=== PATIENT | male | born 1975 | race American Indian/Alaskan Native ===

== ENCOUNTER 2016-05-16 15:34 | Emergency (ER) | payer SELFPAY ==
--- NOTE | 2016-05-16 15:37 | EDM.PDOC ---
ED HPI Trauma - General Chief Complaint: Lower Extremity Injury/Pain Stated Complaint: [id number] LEFT KNEE HYPEREXTENDED IT Time Seen by Provider: 05/16/16 15:36 Source: Reports: Patient, Old records, RN, RN notes reviewed History Limitations: Reports: No limitations - History of Present Illness INITIAL COMMENTS - FREE TEXT/NARRATIVE: Arrives to ER by POV with c/o "hyperextension injury" of the left knee. Injury occurred 2 days ago when patient tripped on steps. He comes to the ER today due to persistent swelling and pain. Denies any other injury. Severity: moderate Pain/Injury Location: Reports: lower extremity, left Consciousness: Reports: no loss of consciousness, remembers incident Associated Symptoms: Reports: no other symptoms Allergies/ADRs: Allergies penicillin Allergy (Verified 05/16/16 15:43) Rash Penicillins Allergy (Verified 05/16/16 15:43) Bronchospasms Past Medical History - Past Health History Medical/Surgical History: Denies Medical/Surgical History HEENT History: Reports: Impaired vision Cardiovascular History: Reports: None Respiratory History: Reports: Asthma Gastrointestinal History: Reports: None Genitourinary History: Reports: None Musculoskeletal History: Reports: None Neurological History: Reports: None Psychiatric History: Reports: Addiction, Anxiety, Depression, Hallucinations Endocrine/Metabolic History: Reports: None Hematologic History: Reports: None Immunologic History: Reports: None Oncologic (Cancer) History: Reports: None Dermatologic History: Reports: None - Infectious Disease History Infectious Disease History: Reports: None - Past Surgical History Head Surgeries/Procedures: Reports: None Social & Family History - Family History Family Medical History: Noncontributory - Tobacco Use Smoking Status *Q: Never Smoker Years of Tobacco use: 3 Used Tobacco, but Quit: No Second Hand Smoke Exposure: Yes - Caffeine Use Caffeine Use: Reports: Soda - Alcohol Use Days Per Week of Alcohol Use: 7 Number of Drinks Per Day: 0 Total Drinks Per Week: 0 - Recreational Drug Use Recreational Drug Use: No - Living Situation & Occupation Living situation: Reports: , with significant other Occupation: unemployed Review of Systems - Review of Systems Review Of Systems: ROS reveals no pertinent complaints other than HPI. Trauma Exam - Physical Exam Exam: See Below Exam Limited By: No limitations General Appearance: Reports: alert, WD/WN, no apparent distress Head: Reports: atraumatic, normocephalic Respiratory Exam: Reports: no respiratory distress Cardiovascular: Reports: normal peripheral pulses Extremities: Reports: joint effusion (left knee.), pain with movement (left knee ), unable to bear weight (left knee). Denies: bony-point tenderness Neurologic: Reports: pin inserter regulator II-XII nml as tested, no motor/sensory deficits, alert , normal mood/affect, oriented x 3 Skin: Reports: Normal color, Warm/dry Course - Vital Signs Last Recorded V/S: Last Vital Signs Temp 36.8 C 05/16/16 15:51 Pulse 92 05/16/16 15:51 Resp 18 05/16/16 15:51 BP 128/86 05/16/16 15:51 Pulse Ox 96 05/16/16 15:51 - Orders/Labs/Meds Orders: Active Orders 24 hr Category Date Time Status Immobilizer [RC] ASDIRECTED Care 05/16/16 16:11 Ordered DME for Discharge [COMM] Routine Oth 05/16/16 16:10 Ordered Meds: Medications Discontinued Medications Generic Name Dose Route Start Last Admin Trade Name Bryant PRN Reason Stop Dose Admin Ibuprofen 800 mg 05/16/16 16:11 05/16/16 16:23 Motrin PO 05/16/16 16:12 800 mg ONETIME ONE Administration Tramadol HCl 50 mg 05/16/16 16:11 05/16/16 16:23 Ultram PO 05/16/16 16:12 50 mg ONETIME ONE Administration - Radiology Interpretation Free Text/Narrative:: X-ray of left knee: Joint effusion. No fractures, per rad report. Departure - Departure Time of Disposition: 16:12 Disposition: Home, Self-Care 01 Condition: good Clinical Impression: Knee effusion, left Hyperextension injury of knee Qualifiers: Encounter type: initial encounter Laterality: left Qualified Code(s): S89.82XA - Other specified injuries of left lower leg, initial encounter Instructions: Knee Sprain, [id number]-[id number], Knee Effusion, [id number] Forms: ED Department Discharge Additional Instructions: Rest, ice pack, and elevate left knee for pain and swelling. Use crutches and knee immobilizer for 7 to 10 days. Rx: Motrin 600mg Rx: Tramadol 50mg Follow up in clinic in 7 to 10 days for recheck and referral to orthopedic surgeon if needed. - My Orders Last 24 Hours: My Active Orders 05/16/16 16:10 DME for Discharge [COMM] Routine 05/16/16 16:11 Immobilizer [RC] ASDIRECTED - Assessment/Plan Last 24 Hours: My Active Orders 05/16/16 16:10 DME for Discharge [COMM] Routine 05/16/16 16:11 Immobilizer [RC] ASDIRECTED
[2016-05-16 15:52] VITALS: BP 128/86
--- NOTE | 2016-05-16 16:05 | CR ---
Clinical history: 40-year-old male hyperextension injury left knee (fall). Interpretation: Abnormal. Suprapatellar bursal effusion but no sign of left knee fracture, dislocation or radiopaque loose kaley nt body (fabella posterior laterally). Reactive sclerosis and tiny marginal spur formation patellofemoral surface of the patella. No other arthritic or degenerative changes. CONCLUSION: Joint effusion. Chondromalacia patella. No acute fracture.
[2016-05-16] MEDS ORDERED: traMADol 50 MG Tab PO ONE (16:11)
[2016-05-16] MEDS ORDERED: Ibuprofen 800 MG Tab PO ONE (16:11)
== END 2016-05-16 16:25 | disposition home or self-care (01) ==
LOC: DL.ED 15:34
DX: S89.92XA Unspecified injury of left lower leg, initial encounter (principal); M25.462 Effusion, left knee; J45.909 Unspecified asthma, uncomplicated; F41.9 Anxiety disorder, unspecified; F32.9 Major depressive disorder, single episode, unspecified; Z88.0 Allergy status to penicillin; W10.9XXA Fall (on) (from) unspecified stairs and steps, initial encounter
CPT/HCPCS: 73562; 99283; A9270

== ENCOUNTER 2019-10-20 15:25 | Emergency (ER) | payer MEDICAID ==
[2019-10-20] MEDS ORDERED: Sodium Chloride 0.9% 10 ML Syringe FLUSH PRN (15:33)
--- NOTE | 2019-10-20 15:33 | EDM.PDOC ---
ED HPI GENERAL MEDICAL PROBLEM - General Chief Complaint: Abdominal Pain Stated Complaint: SPIRIT AMB. Time Seen by Provider: 10/20/19 15:32 Source of Information: Reports: Patient, Old Records, RN, RN Notes Reviewed History Limitations: Reports: No Limitations - History of Present Illness INITIAL COMMENTS - FREE TEXT/NARRATIVE: Patient arrives to ED by [facility] with complaint of abdominal pain, ascites, and shortness of breath off and on since August. Pt has Hx of cirrhosis with ascites. He had paracentesis at [facility] about 2 weeks ago. Pt states that for the last week his abdomen has increased in size and he has become more yellow. Denies fever or chills. He states he was admitted to the hospital in August with COVID but recovered and was "cleared". Onset: Gradual Duration: Getting Worse Location: Reports: Chest, Abdomen Quality: Reports: Ache Severity: Moderate Improves with: Reports: None Worsens with: Reports: None Associated Symptoms: Reports: No Other Symptoms Abdominal Pain Score (Numeric/FACES): 8 - Related Data Allergies Allergy/AdvReac Type Severity Reaction Status Date / Time Penicillins Allergy Bronchospas Verified 10/20/19 15:32 ms Home Meds: Home Meds Citric Acid/Sodium Citrate [Bicitra Solution] 20 ml PO BID 10/20/19 [History] Folic Acid 1 mg PO DAILY 10/20/19 [History] Furosemide [Lasix] 20 mg PO DAILY 10/20/19 [History] Lactulose 15 ml PO QID 10/20/19 [History] Magnesium Oxide 400 mg PO BID 10/20/19 [History] Omeprazole 40 mg PO DAILY 10/20/19 [History] Rifaximin [Xifaxan] 400 mg PO TID 10/20/19 [History] Spironolactone [Aldactone] 100 mg PO DAILY 10/20/19 [History] Past Medical History - Past Health History Medical/Surgical History: Denies Medical/Surgical History HEENT History: Reports: Impaired Vision Cardiovascular History: Reports: None Respiratory History: Reports: Asthma Gastrointestinal History: Reports: Cirrhosis, Hepatitis (Alcoholic), Jaundice Genitourinary History: Reports: None Musculoskeletal History: Reports: None Neurological History: Reports: None Psychiatric History: Reports: Addiction, Anxiety, Depression, Hallucinations Endocrine/Metabolic History: Reports: None Hematologic History: Reports: None Immunologic History: Reports: None Oncologic (Cancer) History: Reports: None Dermatologic History: Reports: None - Infectious Disease History Infectious Disease History: Reports: None - Past Surgical History Head Surgeries/Procedures: Reports: None Social & Family History - Family History Family Medical History: Noncontributory - Caffeine Use Caffeine Use: Reports: None - Alcohol Use Alcohol Use History: Yes Alcohol Use Frequency: Not Used in Over 1 Year - Living Situation & Occupation Living situation: Reports: , with Significant Other Occupation: Unemployed ED ROS GENERAL - Review of Systems Review Of Systems: Comprehensive ROS is negative, except as noted in HPI. ED EXAM, GENERAL - Physical Exam Exam: See Below Exam Limited By: No Limitations General Appearance: Alert, No Apparent Distress, Other (Chronically ill appearing) Eye Exam: Bilateral Eye: EOMI (Scleral icterus) Ears: Normal External Exam, Hearing Grossly Normal Nose: Normal Inspection, Normal Mucosa, No Blood Throat/Mouth: Normal Lips, Normal Oropharynx, Normal Voice, No Airway Compromise Head: Atraumatic, Normocephalic Neck: Normal Inspection, Supple, Non-Tender, Full Range of Motion. No: Lymphadenopathy (L), Lymphadenopathy (R) Respiratory/Chest: No Respiratory Distress, Lungs Clear, Normal Breath Sounds, No Accessory Muscle Use, Chest Non-Tender Cardiovascular: Normal Peripheral Pulses, Regular Rate, Rhythm GI/Abdominal: Normal Bowel Sounds, Soft, Tender (Generalized, with fluid wave consistent with ascites), Hepatomegaly. No: Guarding, Rigid, Rebound (Male) Exam: Deferred Rectal (Males) Exam: Deferred Back Exam: Normal Inspection Extremities: Normal Range of Motion, Non-Tender Neurological: Alert, Oriented, Normal Cognition, No Motor/Sensory Deficits Psychiatric: Normal Mood Skin Exam: Warm, Dry, Intact, Jaundice. No: Ecchymosis, Petechiae Course - Vital Signs Last Recorded V/S: Last Vital Signs Temp 97.7 F 10/20/19 15:33 Pulse 100 10/20/19 15:33 Resp 18 10/20/19 15:33 BP 140/72 10/20/19 15:33 Pulse Ox 97 10/20/19 15:33 - Orders/Labs/Meds Orders: Active Orders 24 hr Category Date Time Status Peripheral IV Care [RC] . DIRECTED Care 10/20/19 15:34 Active UA RFX ALISON AND CULT IF INDIC [URIN] Stat Lab 10/20/19 16:29 Received Ciprofloxacin in D5W [Cipro in D5W 400 MG/200 ML] 400 Med 10/20/19 17:01 Active mg Premix Bag 1 bag IV ONETIME Sodium Chloride 0.9% [Saline Flush] Med 10/20/19 15:33 Active 10 ml FLUSH ASDIRECTED PRN Peripheral IV Insertion Adult [OM.PC] Stat Oth 10/20/19 15:33 Ordered Medication Orders Ciprofloxacin/Dextrose 400 mg/ (Premix) 200 mls @ 200 mls/hr IV ONETIME ONE Stop: 10/20/19 18:00 Last Admin: 10/20/19 17:12 Dose: 200 mls/hr Documented by: VALDEMAR Sodium Chloride (Saline Flush) 10 ml FLUSH ASDIRECTED PRN PRN Reason: Keep Vein Open Last Admin: 10/20/19 15:48 Dose: 10 ml Documented by: VALDEMAR Labs: Laboratory Tests 10/20/19 10/20/19 10/20/19 Range/Units 15:49 15:49 15:49 WBC 13.7 H (5.0-10.0) 10^3/uL RBC 2.81 L (4.6-6.2) 10^6/uL Hgb 9.6 L D (14.0-18.0) g/dL Hct 27.1 L (40.0-54.0) % MCV 96.4 (80-100) fL MCH 34.2 H (27.0-34.0) pg MCHC 35.4 H (33.0-35.0) g/dL Plt Count 83 L (150-450) 10^3/uL Neut % (Auto) 78.0 H (42.2-75.2) % Lymph % (Auto) 7.6 L (20.5-50.1) % [place] % (Auto) 13.1 H (2-8) % Eos % (Auto) 0.9 L (1.0-3.0) % Baso % (Auto) 0.4 (0.0-1.0) % PT 17.2 H D (9.0-12.0) SEC INR 1.8 H (0.9-1.2) APTT 39.0 H (22.0-34.0) SEC Sodium 130 L (136-145) mmol/L Potassium 3.8 (3.5-5.1) mmol/L Chloride 100 (98-107) mmol/L Carbon Dioxide 19 L (21-32) mmol/L Anion Gap 14.8 H (7-13) mEq/L BUN 12 (7-18) mg/dL Creatinine 1.26 (0.70-1.30) mg/dL Est Cr Clr Drug Dosing 81.26 mL/min Estimated GFR (MDRD) > 60 BUN/Creatinine Ratio 9.5 (No establ ref range) Glucose 119 H (74-99) mg/dL Lactic Acid (0.4-2.0) mmol/L Calcium 8.0 L (8.5-10.1) mg/dL Total Bilirubin 22.7 H (0.2-1.0) mg/dL AST 65 H (15-37) U/L ALT 35 (16-63) U/L Alkaline Phosphatase 240 H (46-116) U/L Ammonia (11-32) umol/L Total Protein 6.5 (6.4-8.2) g/dL Albumin 2.1 L (3.4-5.0) g/dL Globulin 4.4 Albumin/Globulin Ratio 0.48 Amylase 74 (25-115) U/L Lipase 317 (73-393) U/L Urine Opiates Screen (NEGATIVE) Ur Oxycodone Screen (NEGATIVE) Urine Methadone Screen (NEGATIVE) Ur Barbiturates Screen (NEGATIVE) U Tricyclic Antidepress (NEGATIVE) Ur Phencyclidine Scrn (NEGATIVE) Ur Amphetamine Screen (NEGATIVE) U Methamphetamines Scrn (NEGATIVE) Urine MDMA Screen (NEGATIVE) U Benzodiazepines Scrn (NEGATIVE) Urine Cocaine Screen (NEGATIVE) U Marijuana (THC) Screen (NEGATIVE) Ethyl Alcohol < 3 (0) mg/dL 10/20/19 10/20/19 10/20/19 Range/Units 15:49 15:49 16:29 WBC (5.0-10.0) 10^3/uL RBC (4.6-6.2) 10^6/uL Hgb (14.0-18.0) g/dL Hct (40.0-54.0) % MCV (80-100) fL MCH (27.0-34.0) pg MCHC (33.0-35.0) g/dL Plt Count (150-450) 10^3/uL Neut % (Auto) (42.2-75.2) % Lymph % (Auto) (20.5-50.1) % [place] % (Auto) (2-8) % Eos % (Auto) (1.0-3.0) % Baso % (Auto) (0.0-1.0) % PT (9.0-12.0) SEC INR (0.9-1.2) APTT (22.0-34.0) SEC Sodium (136-145) mmol/L Potassium (3.5-5.1) mmol/L Chloride (98-107) mmol/L Carbon Dioxide (21-32) mmol/L Anion Gap (7-13) mEq/L BUN (7-18) mg/dL Creatinine (0.70-1.30) mg/dL Est Cr Clr Drug Dosing mL/min Estimated GFR (MDRD) BUN/Creatinine Ratio (No establ ref range) Glucose (74-99) mg/dL Lactic Acid 1.8 (0.4-2.0) mmol/L Calcium (8.5-10.1) mg/dL Total Bilirubin (0.2-1.0) mg/dL AST (15-37) U/L ALT (16-63) U/L Alkaline Phosphatase (46-116) U/L Ammonia 38 H (11-32) umol/L Total Protein (6.4-8.2) g/dL Albumin (3.4-5.0) g/dL Globulin Albumin/Globulin Ratio Amylase (25-115) U/L Lipase (73-393) U/L Urine Opiates Screen Negative (NEGATIVE) Ur Oxycodone Screen Negative (NEGATIVE) Urine Methadone Screen Negative (NEGATIVE) Ur Barbiturates Screen Negative (NEGATIVE) U Tricyclic Antidepress Negative (NEGATIVE) Ur Phencyclidine Scrn Negative (NEGATIVE) Ur Amphetamine Screen Negative (NEGATIVE) U Methamphetamines Scrn Negative (NEGATIVE) Urine MDMA Screen Negative (NEGATIVE) U Benzodiazepines Scrn Negative (NEGATIVE) Urine Cocaine Screen Negative (NEGATIVE) U Marijuana (THC) Screen Negative (NEGATIVE) Ethyl Alcohol (0) mg/dL Meds: Medications Generic Name Dose Route Start Last Admin Trade Name Freq PRN Reason Stop Dose Admin Ciprofloxacin/Dextrose 400 mg/ 200 mls @ 200 mls/hr 10/20/19 17:01 10/20/19 17:12 Premix IV 10/20/19 18:00 200 mls/hr ONETIME ONE Administration Sodium Chloride 10 ml 10/20/19 15:33 10/20/19 15:48 Saline Flush FLUSH 10 ml ASDIRECTED PRN Administration Keep Vein Open - Re-Assessments/Exams Free Text/Narrative Re-Assessment/Exam: 10/20/19 17:22 Jeremy Rowe has been providing pt's care recently, but has no beds available. Pt agrees to go to [facility]. Departure - Departure Time of Disposition: 17:23 Disposition: DC/Tfer to [facility] 02 Condition: Serious Clinical Impression: Hyperbilirubinemia Cirrhosis of liver with ascites Qualifiers: Hepatic cirrhosis type: alcoholic cirrhosis Qualified Code(s): K70.31 - Alcoholic cirrhosis of liver with ascites Abdominal pain Qualifiers: Abdominal location: generalized Qualified Code(s): R10.84 - Generalized abdominal pain - Discharge Information *PRESCRIPTION DRUG MONITORING PROGRAM REVIEWED*: Not Applicable *COPY OF PRESCRIPTION DRUG MONITORING REPORT IN PATIENT ZACARIAS: Not Applicable Forms: ED Department Discharge, Interfacility Transfer [facility] Sepsis Event Note (ED) - Focused Exam Vital Signs: Vital Signs Temp Pulse Resp BP Pulse Ox 10/20/19 15:33 97.7 F 100 18 140/72 97 - My Orders Last 24 Hours: My Active Orders 10/20/19 15:33 Sodium Chloride 0.9% [Saline Flush] 10 ml FLUSH ASDIRECTED PRN Peripheral IV Insertion Adult [OM.PC] Stat 10/20/19 15:34 Peripheral IV Care [RC] . DIRECTED 10/20/19 16:29 UA RFX ALISON AND CULT IF INDIC [URIN] Stat 10/20/19 17:01 Ciprofloxacin in D5W [Cipro in D5W 400 MG/200 ML] 400 mg Premix Bag 1 bag IV ONETIME - Assessment/Plan Last 24 Hours: My Active Orders 10/20/19 15:33 Sodium Chloride 0.9% [Saline Flush] 10 ml FLUSH ASDIRECTED PRN Peripheral IV Insertion Adult [OM.PC] Stat 10/20/19 15:34 Peripheral IV Care [RC] . DIRECTED 10/20/19 16:29 UA RFX ALISON AND CULT IF INDIC [URIN] Stat 10/20/19 17:01 Ciprofloxacin in D5W [Cipro in D5W 400 MG/200 ML] 400 mg Premix Bag 1 bag IV ONETIME
[2019-10-20 15:36] VITALS: BP 140/72; PULSE 100
[2019-10-20 16:35] LABS: ANION GAP 14.8 mEq/L (7-13); CHLORIDE,CL 100 mmol/L (98-107); SODIUM,NA 130 mmol/L (136-145)
[2019-10-20] MEDS ORDERED: Ciprofloxacin in D5W 400 MG in Premix Bag 1 BAG IV ONE ×2 (17:01)
== END 2019-10-20 19:24 ==
LOC: DL.ED 15:25
DX: E80.6 Other disorders of bilirubin metabolism (principal); K70.31 Alcoholic cirrhosis of liver with ascites; J45.909 Unspecified asthma, uncomplicated; Z88.0 Allergy status to penicillin; Z79.899 Other long term (current) drug therapy
CPT/HCPCS: 36415; 80053; 80305; 80307; 81001; 82140; 82150; 83605; 83690; 85025; 85610; 85730; 96365; 99285; J0744

== ENCOUNTER 2019-11-21 14:40 | Emergency (ER) | payer MEDICAID ==
[2019-11-21 14:27] VITALS: BP 133/70; PULSE 129
--- NOTE | 2019-11-21 14:58 | EDM.PDOC ---
ED HPI GENERAL MEDICAL PROBLEM - General Chief Complaint: Abdominal Pain Stated Complaint: AMBULANCE Time Seen by Provider: 11/21/19 14:30 Source of Information: Reports: Patient, RN, RN Notes Reviewed History Limitations: Reports: No Limitations - History of Present Illness INITIAL COMMENTS - FREE TEXT/NARRATIVE: Patient presents to the ED via EMS for complaints of abdominal pain, diarrhea, and shortness of breath. The patient states his abdominal pain and diarrhea began last night. He states his shortness of breath is chronic, but has progressively worsened over the last week. He notes his last paracentesis was performed about two weeks ago. He verbalizes complaints of diffuse lower abdominal pain which is burning and sharp in nature. He denies any recent alcohol use and states his last drink was in August. He denies chest pain, chest pressure, fever, or shaking chills. The patient does attest to palpitations and bounding heart. He states he has noticed recent hematuria, but denies dysuria or suprapubic tenderness. He denies melena or dark, tarry stools. He denies taking any medications for his current pain, shortness of breath, hematuria, or palpitations. Abdomen Pain Score (Numeric/FACES): 7 - Related Data Allergies Allergy/AdvReac Type Severity Reaction Status Date / Time Penicillins Allergy Bronchospas Verified 11/21/19 14:27 ms Home Meds: Home Meds Citric Acid/Sodium Citrate [Bicitra Solution] 20 ml PO BID 10/20/19 [History] Folic Acid 1 mg PO DAILY 10/20/19 [History] Furosemide [Lasix] 20 mg PO DAILY 10/20/19 [History] Lactulose 15 ml PO QID 10/20/19 [History] Magnesium Oxide 400 mg PO BID 10/20/19 [History] Omeprazole 40 mg PO DAILY 10/20/19 [History] Rifaximin [Xifaxan] 400 mg PO TID 10/20/19 [History] Spironolactone [Aldactone] 100 mg PO DAILY 10/20/19 [History] Past Medical History - Past Health History Medical/Surgical History: Denies Medical/Surgical History HEENT History: Reports: Impaired Vision Cardiovascular History: Reports: None Respiratory History: Reports: Asthma Gastrointestinal History: Reports: Cirrhosis, Hepatitis, Jaundice Other Gastrointestinal History: ascites Genitourinary History: Reports: None Musculoskeletal History: Reports: None Neurological History: Reports: None Psychiatric History: Reports: Addiction, Anxiety, Depression, Hallucinations Endocrine/Metabolic History: Reports: None Hematologic History: Reports: None Immunologic History: Reports: None Oncologic (Cancer) History: Reports: None Dermatologic History: Reports: None - Infectious Disease History Infectious Disease History: Reports: None - Past Surgical History Head Surgeries/Procedures: Reports: None Social & Family History - Family History Family Medical History: Noncontributory - Tobacco Use Smoking Status *Q: Never Smoker - Caffeine Use Caffeine Use: Reports: Tea - Alcohol Use Date of Last Drink: 11/11/19 - Recreational Drug Use Recreational Drug Use: No - Living Situation & Occupation Living situation: Reports: , with Significant Other Occupation: Unemployed ED ROS GENERAL - Review of Systems Review Of Systems: Comprehensive ROS is negative, except as noted in HPI. ED EXAM, GI/ABD - Physical Exam Exam: See Below Exam Limited By: No Limitations General Appearance: Alert, Moderate Distress Eyes: Bilateral: Normal Appearance (Jaundiced), EOMI Throat/Mouth: Normal Voice, No Airway Compromise Head: Normocephalic Neck: Normal Inspection, Supple, Non-Tender Respiratory/Chest: Respiratory Distress, Crackles, Accessory Muscle Use Cardiovascular: No Gallop, No JVD, No Murmur, No Rub, Tachycardia GI/Abdominal Exam: Distended, Tender, Hepatomegaly, Other (Gross ascites) (Male) Exam: Deferred Rectal (Males) Exam: Deferred Back Exam: Normal Inspection. No: CVA Tenderness (L), CVA Tenderness (R) Neurological: Alert, CN II-XII Intact, Normal Cognition Skin Exam: Jaundice Course - Vital Signs Last Recorded V/S: Last Vital Signs Temp 99.6 F 11/21/19 14:21 Pulse 129 H 11/21/19 14:21 Resp 21 H 11/21/19 14:21 BP 133/70 11/21/19 14:21 Pulse Ox 92 L 11/21/19 14:21 - Orders/Labs/Meds Orders: Active Orders 24 hr Category Date Time Status EKG Documentation Completion [RC] STAT Care 11/21/19 14:20 Active Insert Drake Catheter [Insert Urinary Catheter] [OM.PC] Care 11/21/19 16:30 Ordered Q24H Urinary Catheter Assessment [RC] ASDIRECTED Care 11/21/19 16:28 Active Chest 2V [CR] Urgent Exams 11/21/19 14:22 Stop Req CULTURE BLOOD [BC] Stat Lab 11/21/19 14:44 Results CULTURE BLOOD [BC] Stat Lab 11/21/19 14:50 Received Blood Culture x2 Reflex Set [OM.PC] Stat Oth 11/21/19 14:38 Ordered Labs: Laboratory Tests 11/21/19 11/21/19 11/21/19 Range/Units 14:44 14:44 14:50 WBC 7.7 (5.0-10.0) 10^3/uL RBC 2.09 L (4.6-6.2) 10^6/uL Hgb 7.5 L D (14.0-18.0) g/dL Hct 21.4 L (40.0-54.0) % MCV 102.4 H D (80-100) fL MCH 35.9 H (27.0-34.0) pg MCHC 35.0 (33.0-35.0) g/dL Plt Count 84 L (150-450) 10^3/uL Neut % (Auto) 93.5 H (42.2-75.2) % Lymph % (Auto) 2.5 L (20.5-50.1) % [place] % (Auto) 3.8 (2-8) % Eos % (Auto) 0.1 L (1.0-3.0) % Baso % (Auto) 0.1 (0.0-1.0) % PT 17.5 H (9.0-12.0) SEC INR 1.9 H (0.9-1.2) APTT 32.0 (22.0-34.0) SEC ABG pH (7.35-7.45) ABG pCO2 (35-45) mmHg ABG pO2 (70-100) mmHg ABG HCO3 (22-26) mmol/L ABG O2 Saturation (95-100) % ABG Base Excess ((-2)-(+3)) mmol/L Turner Test O2 Delivery Device Sodium (136-145) mmol/L Potassium (3.5-5.1) mmol/L Chloride (98-107) mmol/L Carbon Dioxide (21-32) mmol/L Anion Gap (7-13) mEq/L BUN (7-18) mg/dL Creatinine (0.70-1.30) mg/dL Est Cr Clr Drug Dosing mL/min Estimated GFR (MDRD) BUN/Creatinine Ratio (No establ ref range) Glucose (74-99) mg/dL Lactic Acid (0.4-2.0) mmol/L Calcium (8.5-10.1) mg/dL Total Bilirubin (0.2-1.0) mg/dL AST (15-37) U/L ALT (16-63) U/L Alkaline Phosphatase (46-116) U/L Ammonia 27 (11-32) umol/L Troponin I (0.000-0.056) ng/mL Total Protein (6.4-8.2) g/dL Albumin (3.4-5.0) g/dL Globulin Albumin/Globulin Ratio Amylase (25-115) U/L Lipase (73-393) U/L Urine Color (YELLOW) Urine Appearance (CLEAR) Urine pH (5.0-9.0) Ur Specific [place] (1.005-1.030) Urine Protein (NEGATIVE) Urine Glucose (UA) (NEGATIVE) Urine Ketones (NEGATIVE) Urine Occult Blood (NEGATIVE) Urine Nitrite (NEGATIVE) Urine Bilirubin (NEGATIVE) Urine Urobilinogen (0.2-1.0) mg/dL Ur Leukocyte Esterase (NEGATIVE) Urine RBC /HPF Urine WBC (0-5/HPF) /HPF Ur Epithelial Cells (NOT SEEN) /HPF Amorphous Sediment (NOT SEEN) /HPF Urine Bacteria (0-FEW/HPF) /HPF Fine Granular Casts (NOT SEEN) /LPF Urine Mucus (NOT SEEN) /LPF Ethyl Alcohol (0) mg/dL SARS CoV-2 RNA Rapid BILL (NEGATIVE) 11/21/19 11/21/19 11/21/19 Range/Units 14:50 14:50 14:52 WBC (5.0-10.0) 10^3/uL RBC (4.6-6.2) 10^6/uL Hgb (14.0-18.0) g/dL Hct (40.0-54.0) % MCV (80-100) fL MCH (27.0-34.0) pg MCHC (33.0-35.0) g/dL Plt Count (150-450) 10^3/uL Neut % (Auto) (42.2-75.2) % Lymph % (Auto) (20.5-50.1) % [place] % (Auto) (2-8) % Eos % (Auto) (1.0-3.0) % Baso % (Auto) (0.0-1.0) % PT (9.0-12.0) SEC INR (0.9-1.2) APTT (22.0-34.0) SEC ABG pH 7.38 (7.35-7.45) ABG pCO2 27 L (35-45) mmHg ABG pO2 94 (70-100) mmHg ABG HCO3 15.8 L (22-26) mmol/L ABG O2 Saturation 97 (95-100) % ABG Base Excess -8 L ((-2)-(+3)) mmol/L Turner Test Performed O2 Delivery Device Hi flow nasal cannu Sodium 137 (136-145) mmol/L Potassium 3.1 L (3.5-5.1) mmol/L Chloride 103 (98-107) mmol/L Carbon Dioxide 17 L (21-32) mmol/L Anion Gap 20.1 H (7-13) mEq/L BUN 13 (7-18) mg/dL Creatinine 1.13 (0.70-1.30) mg/dL Est Cr Clr Drug Dosing 79.87 mL/min Estimated GFR (MDRD) > 60 BUN/Creatinine Ratio 11.5 (No establ ref range) Glucose 95 (74-99) mg/dL Lactic Acid 4.9 H* (0.4-2.0) mmol/L Calcium 7.8 L (8.5-10.1) mg/dL Total Bilirubin 13.5 H (0.2-1.0) mg/dL AST 185 H (15-37) U/L ALT 73 H (16-63) U/L Alkaline Phosphatase 279 H (46-116) U/L Ammonia (11-32) umol/L Troponin I 0.070 H* (0.000-0.056) ng/mL Total Protein 6.2 L (6.4-8.2) g/dL Albumin 1.9 L (3.4-5.0) g/dL Globulin 4.3 Albumin/Globulin Ratio 0.44 Amylase 50 (25-115) U/L Lipase 443 H (73-393) U/L Urine Color (YELLOW) Urine Appearance (CLEAR) Urine pH (5.0-9.0) Ur Specific [place] (1.005-1.030) Urine Protein (NEGATIVE) Urine Glucose (UA) (NEGATIVE) Urine Ketones (NEGATIVE) Urine Occult Blood (NEGATIVE) Urine Nitrite (NEGATIVE) Urine Bilirubin (NEGATIVE) Urine Urobilinogen (0.2-1.0) mg/dL Ur Leukocyte Esterase (NEGATIVE) Urine RBC /HPF Urine WBC (0-5/HPF) /HPF Ur Epithelial Cells (NOT SEEN) /HPF Amorphous Sediment (NOT SEEN) /HPF Urine Bacteria (0-FEW/HPF) /HPF Fine Granular Casts (NOT SEEN) /LPF Urine Mucus (NOT SEEN) /LPF Ethyl Alcohol 175 (0) mg/dL SARS CoV-2 RNA Rapid BILL (NEGATIVE) 11/21/19 11/21/19 Range/Units 15:00 15:58 WBC (5.0-10.0) 10^3/uL RBC (4.6-6.2) 10^6/uL Hgb (14.0-18.0) g/dL Hct (40.0-54.0) % MCV (80-100) fL MCH (27.0-34.0) pg MCHC (33.0-35.0) g/dL Plt Count (150-450) 10^3/uL Neut % (Auto) (42.2-75.2) % Lymph % (Auto) (20.5-50.1) % [place] % (Auto) (2-8) % Eos % (Auto) (1.0-3.0) % Baso % (Auto) (0.0-1.0) % PT (9.0-12.0) SEC INR (0.9-1.2) APTT (22.0-34.0) SEC ABG pH (7.35-7.45) ABG pCO2 (35-45) mmHg ABG pO2 (70-100) mmHg ABG HCO3 (22-26) mmol/L ABG O2 Saturation (95-100) % ABG Base Excess ((-2)-(+3)) mmol/L Turner Test O2 Delivery Device Sodium (136-145) mmol/L Potassium (3.5-5.1) mmol/L Chloride (98-107) mmol/L Carbon Dioxide (21-32) mmol/L Anion Gap (7-13) mEq/L BUN (7-18) mg/dL Creatinine (0.70-1.30) mg/dL Est Cr Clr Drug Dosing mL/min Estimated GFR (MDRD) BUN/Creatinine Ratio (No establ ref range) Glucose (74-99) mg/dL Lactic Acid (0.4-2.0) mmol/L Calcium (8.5-10.1) mg/dL Total Bilirubin (0.2-1.0) mg/dL AST (15-37) U/L ALT (16-63) U/L Alkaline Phosphatase (46-116) U/L Ammonia (11-32) umol/L Troponin I (0.000-0.056) ng/mL Total Protein (6.4-8.2) g/dL Albumin (3.4-5.0) g/dL Globulin Albumin/Globulin Ratio Amylase (25-115) U/L Lipase (73-393) U/L Urine Color Ava (YELLOW) Urine Appearance Slightly cloudy (CLEAR) Urine pH 6.0 (5.0-9.0) Ur Specific [place] 1.025 (1.005-1.030) Urine Protein 30 H (NEGATIVE) Urine Glucose (UA) 100 H (NEGATIVE) Urine Ketones Trace H (NEGATIVE) Urine Occult Blood Trace-intact H (NEGATIVE) Urine Nitrite Negative (NEGATIVE) Urine Bilirubin Large H (NEGATIVE) Urine Urobilinogen 2.0 H (0.2-1.0) mg/dL Ur Leukocyte Esterase Negative (NEGATIVE) Urine RBC 0-5 /HPF Urine WBC 0-5 (0-5/HPF) /HPF Ur Epithelial Cells Occasional (NOT SEEN) /HPF Amorphous Sediment Few (NOT SEEN) /HPF Urine Bacteria Rare (0-FEW/HPF) /HPF Fine Granular Casts Few H (NOT SEEN) /LPF Urine Mucus Few H (NOT SEEN) /LPF Ethyl Alcohol (0) mg/dL SARS CoV-2 RNA Rapid BILL Positive H (NEGATIVE) Meds: Medications Discontinued Medications Generic Name Dose Route Start Last Admin Trade Name Freq PRN Reason Stop Dose Admin Ciprofloxacin/Dextrose 400 mg/ 200 mls @ 200 mls/hr 11/21/19 15:43 11/21/19 16:11 Premix IV 11/21/19 16:42 200 mls/hr ONETIME ONE Administration - Radiology Interpretation Free Text/Narrative:: [facility] [place] [facility] Final Radiology Report Call: [phone] assistance Online chat: [email or web address] Name: JUAN NG Age: 44Years M Date: 11/21/2019 SSN: -- : [id number] Study: CR CHEST 1V FRONTAL Requesting Physician: Lola Abebe Images: 1 Addl Studies: Provided Clinical History: Shortness of breath; HiFlo Nasal Canula Contrast: Contrast Medium: Contrast Amount: Contrast Method: CONFIDENTIALITY STATEMENT This report is intended only for use by the referring physician, and only in accordance with law. If you received this in error, call [phone]. Page 1 of 1 PROCEDURE INFORMATION: Exam: XR Chest, 1 View Exam date and time: 11/21/2019 2:23 PM Age: 44 years old Clinical indication: Other: Recent pneumonia, patient poor historian; Additional info: Shortness of breath; Hiflo nasal canula TECHNIQUE: Imaging protocol: XR of the chest Views: 1 view. COMPARISON: No relevant prior studies available. FINDINGS: Lungs: Associated dense opacification projects over the mid and left lower lung which may represent underlying atelectasis and or infiltrate although can not exclude an underlying mass on this single view. Minimal right medial basilar atelectasis Pleural space: Large left pleural effusion likely involving approximately 75% of the pleural space. Heart/Mediastinum: Heart size is obscured. Bones/joints: Unremarkable. IMPRESSION: Very large left pleural effusion with associated dense opacification throughout the mid and lower left hemithorax as above. Thank you for allowing us to participate in the care of your patient. Dictated and Authenticated by: Curtis Ortega MD 11/21/2019 3:34 PM Central Time ([place] & [place]) - Re-Assessments/Exams Free Text/Narrative Re-Assessment/Exam: 11/21/19 14:20 Patient changed to HiFlo NC; Pending ABG 11/21/19 15:50 Chest xray revealed large left pleural effusion. Lactic Acid 4.9 Total Bilirubin 13.5 Troponin 0.07 Hgb 7.5 Plt 82 11/21/19 15:00 Attempts to transfer patient to higher level of care initiated 11/21/19 16:10 Dr. Dao at [facility] in [place] to accept patient. [facility] and [facility] in [place] unable to accept patient. Departure - Departure Time of Disposition: 17:20 Disposition: DC/Tfer to Other 70 Condition: Good Clinical Impression: Pleural effusion Cirrhosis of liver Qualifiers: Hepatic cirrhosis type: unspecified hepatic cirrhosis Ascites presence: with ascites Qualified Code(s): K74.60 - Unspecified cirrhosis of liver - Discharge Information *PRESCRIPTION DRUG MONITORING PROGRAM REVIEWED*: Not Applicable *COPY OF PRESCRIPTION DRUG MONITORING REPORT IN PATIENT ZACARIAS: Not Applicable Forms: ED Department Discharge, Interfacility Transfer [facility]OREN[facility] Sepsis Event Note (ED) - Evaluation Sepsis Screening Result: No Definite Risk - Focused Exam Vital Signs: Vital Signs Temp Pulse Resp BP Pulse Ox 11/21/19 14:21 99.6 F 129 H 21 H 133/70 92 L - My Orders Last 24 Hours: My Active Orders 11/21/19 14:20 EKG Documentation Completion [RC] STAT 11/21/19 14:22 Chest 2V [CR] Urgent 11/21/19 14:38 Blood Culture x2 Reflex Set [OM.PC] Stat 11/21/19 14:44 CULTURE BLOOD [BC] Stat 11/21/19 14:50 CULTURE BLOOD [BC] Stat 11/21/19 16:28 Urinary Catheter Assessment [RC] ASDIRECTED 11/21/19 16:30 Insert Drake Catheter [Insert Urinary Catheter] [OM.PC] Q24H - Assessment/Plan Last 24 Hours: My Active Orders 11/21/19 14:20 EKG Documentation Completion [RC] STAT 11/21/19 14:22 Chest 2V [CR] Urgent 11/21/19 14:38 Blood Culture x2 Reflex Set [OM.PC] Stat 11/21/19 14:44 CULTURE BLOOD [BC] Stat 11/21/19 14:50 CULTURE BLOOD [BC] Stat 11/21/19 16:28 Urinary Catheter Assessment [RC] ASDIRECTED 11/21/19 16:30 Insert Drake Catheter [Insert Urinary Catheter] [OM.PC] Q24H
[2019-11-21 14:59] LABS: ALLEN TEST PERFORMED; BASE EXCESS ARTERIAL -8 mmol/L ((-2)-(+3)); BICARBONATE,ARTERIAL 15.8 mmol/L (22-26); O2 DELIVERY DEVICE HI FLOW NASAL CANNU; O2 SATURATION ARTERIAL 97 % (95-100); PCO2 ARTERIAL 27 mmHg (35-45); PO2 ARTERIAL 94 mmHg (70-100)
[2019-11-21 15:30] LABS: ANION GAP 20.1 mEq/L (7-13); CHLORIDE,CL 103 mmol/L (98-107); SODIUM,NA 137 mmol/L (136-145)
--- NOTE | 2019-11-21 15:34 | CR ---
PROCEDURE INFORMATION: Exam: XR Chest, 1 View Exam date and time: 11/21/2019 2:23 PM Age: 44 years old Clinical indication: Other: Recent pneumonia, patient poor historian; Additional info: Shortness of breath; Hiflo nasal canula TECHNIQUE: Imaging protocol: XR of the chest Views: 1 view. COMPARISON: No relevant prior studies available. FINDINGS: Lungs: Associated dense opacification projects over the mid and left lower lung which may represent underlying atelectasis and or infiltrate although can not exclude an underlying mass on this single view. Minimal right medial basilar atelectasis Pleural space: Large left pleural effusion likely involving approximately 75% of the pleural space. Heart/Mediastinum: Heart size is obscured. Bones/joints: Unremarkable. IMPRESSION: Very large left pleural effusion with associated dense opacification throughout the mid and lower left hemithorax as above.
[2019-11-21] MEDS ORDERED: Ciprofloxacin in D5W 400 MG in Premix Bag 1 BAG IV ONE ×2 (15:43)
== END 2019-11-21 17:40 | disposition other institution (70) ==
LOC: DL.ED 14:40
DX: K74.60 Unspecified cirrhosis of liver (principal); R18.8 Other ascites; U07.1 COVID-19; J90 Pleural effusion, not elsewhere classified; J45.909 Unspecified asthma, uncomplicated; Z88.0 Allergy status to penicillin
CPT/HCPCS: 36415; 36600; 71045; 80053; 80307; 81001; 82140; 82150; 82803; 83605; 83690; 84484; 85025; 85610; 85730; 87040; 87635; 93005; 94660; 96365; 99285; J0744; 87077; 87186; 99284; U0002